=== PATIENT | female | born 1935 | race Caucasian/White ===

== ENCOUNTER 2017-07-09 07:14 | Outpatient (CLI) | payer MEDICARE | END 2017-07-09 07:15 | disposition home or self-care (01) | LOC: BICMAMMO 07:14 | PROVIDERS: ATTEND Family Medicine | DX: Z12.31 Encounter for screening mammogram for malignant neoplasm of breast (principal) | CPT/HCPCS: 77063; G0202; 77067 ==

== ENCOUNTER 2018-06-24 15:12 | Emergency (ER) | payer MEDICARE ==
--- NOTE | 2018-06-24 16:04 | RAD ---
3 VIEWS RIGHT HAND: Date: 06/24/18 COMPARISON: None. HISTORY: Fell outside of building with index finger deformity. FINDINGS: Three views of the right hand show dislocation of the PIP joint of the index finger with ulnar deviat ion of the digit. No fracture is seen. Degenerative changes are seen in the first CMC joint. IMPRESSION: PIP dislocation of the index finger. POS: [facility]
--- NOTE | 2018-06-24 16:06 | RAD ---
2 VIEWS RIGHT HIP: Date: 06/24/18 HISTORY: Fall with right hip pain. FINDINGS: AP and frog-leg views of right hip obtained. Two views of the right hip demonstrate vascular calcifications seen. No evidence of right hip fractur es, subluxations, or bony lesions seen. IMPRESSION: Normal 2 views right hip. POS: [facility]
--- NOTE | 2018-06-24 16:09 | RAD ---
RIGHT KNEE 4 VIEWS: Date: 06/24/18 COMPARISON: None. HISTORY: Fall outside with right knee pain. FINDINGS: Four views of the right knee show no evidence of acute fracture or dislocation. Calcifications are se en in the menisci, likely secondary to CPPD. No knee effusion is seen. Vascular calcifications are pr esent. IMPRESSION: 1. No evidence of acute osseous abnormality. 2. CPPD. POS: [facility]
--- NOTE | 2018-06-24 16:12 | CT ---
HEAD CT NONCONTRAST: Date: 06/24/18 COMPARISON: 08/16/15. CLINICAL HISTORY: Post-traumatic pain. FINDINGS: Stable encephalomalacia of the right frontal lobe with ex vacuo dilatation of the right lateral ventr icle. There are age-indeterminate lacunar infarctions of the brainstem. No intracranial hemorrhage, m ass effect, or midline shift. Multifocal white matter hypoattenuation of the bilateral cerebral hemis pheres indicates chronic ischemic disease. Small region of encephalomalacia of the right parietal lob e is seen posteriorly. No depressed calvarial fracture or pneumocephalus. There is scattered paranasa l sinus opacification. IMPRESSION: 1. No acute intracranial hemorrhage or mass effect. 2. Multifocal encephalomalacia and chronic ischemic disease. There are interval hypodensities of the brainstem indicating age-indeterminate lacunar infarctions. This region is difficult to reliably ass ess due to beam-hardening artifact from adjacent skull base osseous structures. As necessary, imaging follow-up with brain MRI may prove useful. POS: [facility]
--- NOTE | 2018-06-24 16:12 | CT ---
CERVICAL SPINE CT: INDICATION: Posttraumatic neck pain. FINDINGS: Grade I spondylolisthesis at C3-4 is present. There is slight retrolisthesis of C5 on 6 and C6 on 7. No acute compression fracture. No craniocervical distraction injury. There is degenerative panus formation at the atlantodental articulation. There are multiple metallic clips over the left neck so ft tissues producing streak artifact. IMPRESSION: Multilevel degenerative changes of the cervical spine. No discrete fracture is seen. POS: [facility]
--- NOTE | 2018-06-24 16:16 | CT ---
CT FACIAL BONES WITHOUT CONTRAST: Date: 06/24/18 COMPARISON: None. HISTORY: Facial trauma with soft tissue swelling. TECHNIQUE: Multiple contiguous axial images were obtained in a CT of the face without contrast. Sagittal and cor onal reformats were performed. FINDINGS: There is mild soft tissue swelling of the chin. There appears to be a laceration in this location. No facial fractures are identified. Multiple dental implants are seen. There is fluid in some of the right ethmoid air cells. The other paranasal sinuses and mastoid air ce lls are well aerated. The bilateral maxillary ostiomeatal units are patent. The globes and retrobulbar soft tissues are unremarkable. Surgical clips in the left neck may be from prior left carotid surgery. Encephalomalacia is seen in the right frontal periventricular white matter. IMPRESSION: No evidence of facial fracture. POS: [facility]
[2018-06-24] MEDS ORDERED: Lidocaine 1% PF 5 ML VIAL ONE ×2 (17:01→18:17)
[2018-06-24] MEDS ORDERED: Adacel (T-DAP) 0.5 ML SYRINGE ONE (17:32)
--- NOTE | 2018-06-24 19:19 | RAD ---
RIGHT HAND THREE VIEWS: 06/24/18 HISTORY: Post reduction. COMPARISON: Earlier exam the same day. Arthritic changes of the hand. These changes are particularly pronounced at the first carpometacarpal joint space. The dislocation of the PIP joint of the index finger has been reduced and appears to be in good position. IMPRESSION: 1. Reduction of the dislocation of the PIP joint of the index finger. 2. 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 POS: [facility]
== END 2018-06-24 19:00 | disposition home or self-care (01) ==
LOC: ERS 15:12
DX: S63.280A Dislocation of proximal interphalangeal joint of right index finger, initial encounter (principal); S01.81XA Laceration without foreign body of other part of head, initial encounter; I10 Essential (primary) hypertension; E03.9 Hypothyroidism, unspecified; I25.10 Atherosclerotic heart disease of native coronary artery without angina pectoris; Z79.899 Other long term (current) drug therapy; Z79.82 Long term (current) use of aspirin; W01.0XXA Fall on same level from slipping, tripping and stumbling without subsequent striking against object, initial encounter
CPT/HCPCS: 12011; 26770; 70450; 70486; 72125; 90471; 90715; 93005; J2001

== ENCOUNTER 2018-11-25 13:06 | Outpatient (CLI) | payer MEDICARE ==
--- NOTE | 2018-11-25 13:49 | RAD ---
CHEST 2 VIEWS: Date: 11/25/18 HISTORY: Dyspnea. COMPARISON: 04/02/17. FINDINGS: Surgical clips in the left neck. Stable arthrosis and degenerative changes of the right shoulder. Hea rt size is within normal limits. No confluent pneumonia, overt edema, or pleural effusion. IMPRESSION: Stable chronic lung changes. Levoscoliosis. Atherosclerosis of aorta with ectasia. Other findings as above. POS: [facility]
== END 2018-11-25 13:07 | disposition home or self-care (01) ==
LOC: RAD 13:06
PROVIDERS: ATTEND Internal Medicine Pulmonary Disease
DX: R06.00 Dyspnea, unspecified (principal); I70.0 Atherosclerosis of aorta; I77.819 Aortic ectasia, unspecified site; M19.011 Primary osteoarthritis, right shoulder; Z98.890 Other specified postprocedural states
CPT/HCPCS: 71046

== ENCOUNTER 2018-11-25 14:34 | Outpatient (CLI) | payer MEDICARE ==
--- NOTE | 2018-11-25 15:33 | CT ---
CT Lumbar Spine WO Con HISTORY: Back pain for years. The patient fell in June and pain is becoming more cephalad. COMPARISON: None. FINDINGS: There are severe arthritic changes of the spine. Vertebral bodies maintain normal height. T here is marked disc narrowing at L1-L2 3 and L4-5 with associated vacuum disc phenomenon. There is also some moderate disc narrowing at L3-4. Prominent degenerative facet changes are seen. There is sc oliotic change to the spine. The infrarenal aorta is ectatic but not aneurysmal and shows a chronic appearing area of intimal diss ection. Fairly extensive atherosclerotic disease is seen. The visualized portions of the kidneys appear unremarkable. L1-2: Disc bulge and facet changes are associated with borderline canal stenosis. L2-3: Disc bulging is seen. Some vacuum disc material seen in a left paracentral location suggesting a small disc protrusion/extrusion. There is a mild to moderate degree of canal stenosis. There is also moderately severe right foraminal narrowing. L3-4: There is also a moderate degree of canal stenosis at this level with disc bulge facet and ligam entous hypertrophic change. Moderate left and right foraminal narrowing is seen at this level. L4-5 minimal spondylolisthesis with disc bulge and facet ligamentous hypertrophic changes cause a mod erately severe degree of canal stenosis. Moderate left foraminal stenosis is also present. L5-S1: Disc bulge and minimal spondylolisthesis contribute to a mild degree of canal stenosis. The de generative facet changes are associated with moderate bilateral foraminal narrowing. IMPRESSION: Multilevel areas of canal and foraminal stenosis as discussed above.
== END 2018-11-25 14:35 | disposition home or self-care (01) ==
LOC: BICCT 14:34
PROVIDERS: ATTEND Family Medicine
DX: M51.26 Other intervertebral disc displacement, lumbar region (principal); M48.061 Spinal stenosis, lumbar region without neurogenic claudication; M48.07 Spinal stenosis, lumbosacral region
CPT/HCPCS: 71046; 72131

== ENCOUNTER 2019-04-28 12:37 | Outpatient (CLI) | payer MEDICARE ==
--- NOTE | 2019-04-28 13:37 | CT ---
CT Pulmonary Lung Scan HISTORY: Patient with a 66 years smoking history. Lung screening exam. COMPARISON: Chest x-ray examination of 11/25/2018. FINDINGS: There is evidence of some mild emphysematous lung change with some small peripheral blebs p resent. There is a 5 mm pleural-based nodule along the uppermost aspect of the major fissure on the right. No additional nodules are identified. Thoracic aorta is normal in caliber. There are moderate coronary calcifications. Visualized liver parenchyma shows no focal findings. IMPRESSION: 1. Lung RADS category 2-benign behavior or appearance. An annual follow-up low dose screening exam is recommended. 2. Subcategory S, this is applied for the presence of coronary artery calcifications.
--- NOTE | 2019-04-28 14:02 | ULT ---
ULTRASOUND ABDOMINAL AORTA: Date: 04/28/19 HISTORY: Screening for abdominal aortic aneurysm. FINDINGS: The abdominal aorta measures 2.3 cm in largest AP dimension. The maximum transverse diameter is 2.6 c m. IMPRESSION: No evidence of abdominal aortic aneurysm. POS: [facility]
== END 2019-04-28 12:38 | disposition home or self-care (01) ==
LOC: ULT 12:37
PROVIDERS: ATTEND Family Medicine
DX: Z13.6 Encounter for screening for cardiovascular disorders (principal); F17.210 Nicotine dependence, cigarettes, uncomplicated
CPT/HCPCS: 76775; G0297